=== PATIENT | female | born 2000 | race Caucasian/White ===

== ENCOUNTER 2019-12-19 11:00 | Outpatient (RCR) | payer OTHER, SELFPAY ==
[2019-11-21 07:36] VITALS: BP_SYST 125
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
--- NOTE | 2019-12-05 14:13 | PCPTNOTE ---
Patient did not show up for scheduled appointment this date.
--- NOTE | 2019-12-19 11:29 | PTOPEVAL ---
PHYSICAL THERAPY RE-EVALUATION REPORT 12-19-2019 Ms. Thomas has received 8 Physical Therapy sessions, from November 21 to today, for the diagnosis of R shoulder pain. Her treatment included her cervical spine. Compared to the initial evaluation: pain rating numbers and public health dietitian strength are the same; reported headache frequency and duration have increased; reported sleeping tolerance is less-- awakening from sleep more often due to pain; radicular pain is worse--into her fingers now with increased report in % of the day; active R shoulder ranges: flexion is less, abduction and IR are slightly increased and ER is the same; continues to have winging of B scapula, with L worse than the R. She has improved with the posture of her neck and shoulders and education for home exercise program. During the treatment sessions, her pain was decreased the most with cervical mechanical traction. Dry needling gave her some relief, but it did not last. Neha has a follow up appointment next week. PT will be on hold for now. If PT is to continue, please give her a new script. Thank you for referring Ms. Thomas to [facility]. Please review, sign, date and return this plan of care BRIDGETTE. I agree with and certify that the following plan of care is medically necessary. Referring Physician Date Attending Provider: Una Burch PA-C *PT Outpatient Re-Evaluation Document 12/19/19 10:55 KALYN (Rec: 12/19/19 11:26 KALYN [email or web address]) Subjective Information Neha reports: daily Query Text:As Reported By Patient/ headaches, lasting 6 hours; Family with sleeping wake up due to pain 10 x/night; have assist with pulling hair up, is able to brush it most of the way-- if tangled need help; need assist with cooking due to R hand problems and pain; QUICK DASH self assessment functional score of 82% limitation. Pain Assessment Timing of Pain Assessment Timing of Pain Assessment Assessment Pain Scale Pain Scale Used Numeric (1 - 10) Self Report Pain Assessment Right Shoulder(s) Reported Pain Level 7 Pain Description Burning,Shooting Pain Radiation Right Arm Radicular Pain Location into R 4&5 fingers and space between thumb & 1st finger~ 50 % day,start noon Pain Frequency Chronic Other Pain Description R side neck, anterior and posterior shoulder Lowest Pain Intensity 4 Greatest Pain Intensity 10 Pain Level Goal 0 Pain Aggravating Factors Exercise/Activity Other Pain Aggravating Factors move arm forward/overhead and behind her; use arm, put pressure on arm Pain Relief Interventions Used By Heat,Inactivity/Rest Patient
--- NOTE | 2020-01-14 16:06 | PCPTNOTE ---
PHYSICAL THERAPY DISCHARGE 01-14-2020 Attending Provider: Una Burch PA-C Patient:Neha Thomas Date of :2000 Ms. Solomon has not returned for any further treatments since the reevaluation on 12/19/2019. She had a dr follow up appointment and did not receive further orders to continue PT. Therefore she will be discharged at this time. Thank you for referring Neha to [facility]. Please review, sign, date and return this discharge summary BRIDGETTE. I have been updated about the patient's current status and I agree with discharge from the above service at this time. Referring Physician Date
== END 2020-01-15 13:44 | disposition home or self-care (01) ==
LOC: ANHPT 11:00
PROVIDERS: PCP Family Medicine
DX: M75.41 Impingement syndrome of right shoulder (principal); M25.311 Other instability, right shoulder; M25.511 Pain in right shoulder; G89.29 Other chronic pain
CPT/HCPCS: 97012; 97110; 97140; 97161

== ENCOUNTER 2020-04-02 15:15 | Outpatient (CLI) | payer OTHER, SELFPAY ==
--- NOTE | ~2020-04-02 | XR_ITS ---
EXAMINATION: SCOLIOSIS DATE: 04/02/2020 15:42 INDICATION: Radiculopathy the thoracic and lumbar region, back pain TECHNIQUE: Standing AP and lateral views of the thoracolumbar spine FINDINGS: There are 12 rib bearing thoracic vertebral bodies and 5 non-rib bearing lumbar type verteb ral bodies. There is no listhesis, compression deformity or vertebral body anomaly. There are 35 deg jaz of thoracolumbar dextroscoliosis measured from T5 through L1 and 21 degrees of lumbar levoscolio sis measured from L1 through L4. IMPRESSION: 1. Thoracic and lumbar scoliosis as detailed above. 2. No vertebral body anomalies. Reviewed, dictated and finalized at location A.
== END 2020-04-02 15:16 | disposition home or self-care (01) ==
PROVIDERS: PCP Family Medicine; Visit Provider Family Medicine
DX: M54.15 Radiculopathy, thoracolumbar region (principal); M41.84 Other forms of scoliosis, thoracic region; M41.86 Other forms of scoliosis, lumbar region
CPT/HCPCS: 72082

== ENCOUNTER 2020-04-29 14:47 | Outpatient (CLI) | payer OTHER, SELFPAY ==
--- NOTE | ~2020-04-29 | MR_ITS ---
EXAMINATION: MR lumbar spine wo con DATE: 04/29/2020 16:14 INDICATION: Adolescent Idiopathic scoliosis of thoracolumbar spine. TECHNIQUE: Magnetic resonance imaging (MRI) of the lumbar spine was performed without intravenous con trast. Sequences included sagittal T2-weighted FSE, sagittal STIR FSE, sagittal T1-weighted FSE, and axial T2-weighted FSE. COMPARISON: None FINDINGS: There is 18 degrees dextroscoliosis of thoracolumbar spine. Vertebral body heights and inte rvertebral disc heights are normal. The distal spinal cord signal intensity is normal. The conus medu llaris is at L2. The following disc levels are specifically discussed: L1-L2: The disc does not extend beyond the endplate margin. There is no facet joint osteoarthritis. T here is no neural foraminal stenosis. There is no central canal stenosis. L2-L3: The disc is mildly bulging. There is no facet joint osteoarthritis. There is no neural foramin al stenosis. There is no central canal stenosis. L3-L4: The disc is mildly bulging. There is no facet joint osteoarthritis. There is no neural foramin al stenosis. There is no central canal stenosis. L4-L5: The disc is mildly bulging. There is no facet joint osteoarthritis. There is mild bilateral ne ural foraminal stenosis. There is mild central canal stenosis. L5-S1: The disc is mildly bulging. There is mild bilateral facet joint osteoarthritis. There is mild bilateral neural foraminal stenosis. There is no central canal stenosis. IMPRESSION: 1. Mild lumbar spondylosis. 2. Thoracolumbar dextroscoliosis. Reviewed, dictated and finalized at location A.
--- NOTE | ~2020-04-29 | MR_ITS ---
EXAMINATION: MR thoracic spine wo con DATE: 04/29/2020 16:14 INDICATION: Adolescent idiopathic scoliosis of thoracolumbar spine. TECHNIQUE: Magnetic resonance imaging (MRI) of the thoracic spine was performed without intravenous c ontrast. Sagittal localizer T1-weighted FSE of the cervical spine was obtained. Thoracic spine sequen jeanette included sagittal T2-weighted FSE, sagittal T1-weighted FSE, sagittal T2-weighted FS FSE, and axi al T2-weighted FSE. COMPARISON: Radiographs 04/02/2020 FINDINGS: There is 24 degrees levoscoliosis of upper thoracic spine. There is 18 degrees dextroscolio sis of thoracolumbar spine. Vertebral body heights and intervertebral disc heights are normal. The di scs do not extend beyond the endplate margins. The facet joints are unremarkable. No neural foraminal stenosis or central canal stenosis. The spinal cord signal intensity is normal. IMPRESSION: 1. Scoliosis. Reviewed, dictated and finalized at location A. IMPRESSION: 1. Scoliosis.
== END 2020-04-29 14:48 | disposition home or self-care (01) ==
PROVIDERS: PCP Family Medicine; Visit Provider Family Medicine
DX: M41.125 Adolescent idiopathic scoliosis, thoracolumbar region (principal); M41.9 Scoliosis, unspecified; M47.896 Other spondylosis, lumbar region
CPT/HCPCS: 72146; 72148

== ENCOUNTER 2020-07-01 14:15 | Outpatient (RCR) | payer OTHER, SELFPAY ==
--- NOTE | 2020-05-29 16:32 | PTOPEVAL ---
Thank you for referring Neha Thomas to [facility].? The patient is scheduled to be seen for therapy? 2 x/week for 8 weeks. Please review, sign, date and return this plan of care BRIDGETTE. I agree with and certify that the following plan of care is medically necessary. Referring Physician Date Referring Provider: Dr. Sheldon Leonard *PT Outpatient Evaluation Start: 05/29/20 14:03 Freq: Status: Active Protocol: Document 05/29/20 14:02 CHANG (Rec: 05/29/20 14:54 CHANG [email or web address]) Therapy Assessment Status Assessment Status Assessment Status Evaluation Outpatient Past Medical History Past Medical History Source of Past Medical History Patient,Recalled from Previous Visit, Confirmed with Patient /Family Neurological History Hx Migraine Yes: with increased neck and shoulder pain; every/every other day Cardiovascular History Hx Hypertension Yes: meds Respiratory History Hx Respiratory Disorders No Significant History Gastrointestinal History Hx Gastrointestinal Disorders No Significant History Genitourinary History Hx Genitourinary Disorders No Significant History Musculoskeletal History Hx Back Pain Yes: seen chiropractor in past scoliosis Hx Other Musculoskeletal Disorders Yes: neck and R shoulder pain Hematological History Hx Hematological Disorders No Significant History Endocrine History Hx Endocrine Disorders No Significant History HEENT History Hx HEENT Disorders No Significant History Integumentary History Hx Skin Disorders No Significant History Other History Hx Other Surgeries Yes: tonsillectomy Evaluation Information Problem Diagnosis back and neck pain Onset 09/19-neck, 6 yrs ago- back Cause unknown Additional Evaluation Detail PT 5 months ago for shoulder and neck. 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 Subjective Information Back started hurting when she Query Text:As Reported By Patient/ was 13yr old. She was seen by Family a chiro for traction and manipulation with some relief of symptoms. She did stretches to help her back pain with some relief of her pain.
--- NOTE | 2020-06-11 14:41 | PCPTNOTE ---
Unable to see patient for scheduled PT session patient cancelled due to having to work.
--- NOTE | 2020-06-18 14:34 | PCPTNOTE ---
Patient called & cancelled scheduled appointment this date due to hurting more and not feeling up to coming in.
--- NOTE | 2020-06-24 15:47 | PCPTNOTE ---
Patient did not show up for scheduled appointment this date.Called pt and left message on voicemail. No additional appts scheduled.
--- NOTE | 2020-07-01 16:12 | PTOPEVAL ---
Thank you for referring Neha Thomas to [facility].? Pt has reached maximal potential with skilled therapy services at this time. She is unable to tolerance a progression of therapy program for resistance training. Goals have been partially met. DC skilled therapy services at this time. Please review, sign, date and return this plan of care BRIDGETTE. I agree with and certify that the following plan of care is medically necessary. Referring Physician Date Referring Provider: Dr. Sheldon Leonard MD *PT Outpatient Evaluation Start: 05/29/20 14:03 Freq: Status: Active Protocol: Document 07/01/20 14:13 CHANG (Rec: 07/01/20 15:13 CHANG [email or web address]) Therapy Assessment Status Assessment Status Assessment Status Re-evaluation/Discharge Note Evaluation Information Problem Diagnosis back and neck pain Onset 09/19-neck, 6 yrs ago- back Cause unknown Additional Evaluation Detail PT 5 months ago for shoulder and neck. 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 Back started hurting when she was 13yr old. She was seen by a chiro for traction and manipulation with some relief of symptoms. Subjective Information She feel like she is able to Query Text:As Reported By Patient/ move better, but denies any Family changes in her pain. She cont to report a great deal of popping in her back and neck region. She cont to have pain into small finger that radiated from her her. She reports increased pain with reading regardless of her neck or UE position,lifting task limited to 20#, and standing. Reports limitations with reaching task overhead or behind back with limited performance with ADL's. She is limited with sleeping due to pain. She started on back and end sleeping on right shoulder. Pain Assessment Timing of Pain Assessment Timing of Pain Assessment Re-assessment Pain Sca
== END 2020-07-02 13:17 | disposition home or self-care (01) ==
LOC: ANHPT 14:15
PROVIDERS: PCP Family Medicine
DX: M54.6 Pain in thoracic spine (principal); G89.29 Other chronic pain
CPT/HCPCS: 97110; 97162

== ENCOUNTER 2021-01-25 14:30 | Outpatient (RCR) | payer OTHER, SELFPAY ==
--- NOTE | 2020-12-30 08:50 | PTOPEVAL ---
PHYSICAL THERAPY EVALUATION Thank you for referring Neha Thomas to [facility].? Neha was evaluated for the dx of right arm monoplegia/weaknesses. The patient is scheduled to be seen for therapy?1 x/week for 4 weeks (less frequency with goal to progress HEP weekly as pt able). Please review, sign, date and return this plan of care BRIDGETTE. I agree with and certify that the following plan of care is medically necessary. Referring Physician Date Attending Provider: Lila Bonilla, MD *PT Outpatient Evaluation Start: 12/30/20 07:37 Freq: Status: Active Protocol: Document 12/30/20 07:37 MLV (Rec: 12/30/20 08:35 MLV [id number]) Assessment Status Evaluation Evaluation Information Problem Diagnosis right UE monoplegia Onset 2 years ago Cause none Additional Evaluation Detail Patient has right arm weakness /pain beginning 2 yrs ago. 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 Patient likes to cook and do housework but is limited due to power limits. Pateint has trouble with opening jars and lifting milk or other weighted things in the kitchen. Pt reports more pain at night versus day. Subjective Information Pt had limited progress with Query Text:As Reported By Patient/ therapy before due to pain but Family pain has gone down and feels she is able to tolerate strengthening better now. Previous Treatments Previous Treatments For This Problem had PT and OT for this about 1.5 yrs ago and was seen for about a year Pain Assessment Timing of Pain Assessment Timing of Pain Assessment Assessment Pain Scale Pain Scale Used Numeric (1 - 10) Self Report Pain Assessment Right Shoulder(s) Reported Pain Level 3 Pain Description Aching Radicular Pain Location pain at shoulder blade Pain Frequency Chronic Other Pain Description occasional forearm pain Pain Aggravating Factors Exercise/Activity Pain Score Pain Score
--- NOTE | 2021-01-13 13:38 | PCPTNOTE ---
Patient did not show up for scheduled appointment this date. Called patient-no answer. Left a message with a reminder of next appt time/date.
--- NOTE | 2021-01-25 15:08 | PTOPEVAL ---
PHYSICAL THERAPY DISCHARGE SUMMARY Thank you for referring Neha Thomas to [facility].? The patient has been seen 4 visits for the dx of right UE monoplegia. The pt has met her goals and has no further skilled PT needs. DC PT. Please review, sign, date and return this plan of care. I agree with and certify the following plan of care. Referring Physician Date Attending Provider: Lila Bonilla, MD *PT Outpatient Discharge Start: 12/30/20 07:37 Freq: Status: Active Protocol: Document 01/25/21 14:30 MLV (Rec: 01/25/21 15:08 MLV [email or web address]) Therapy Assessment Status Assessment Status Assessment Status Discharge Evaluation Information Problem Diagnosis right UE monoplegia Onset 2 years ago Cause none Additional Evaluation Detail Pt feels she is much better with her strength and the pain is low and manageable. Pt denies pain with lifting activities being done in therapy. Pt feels she is able to lift well for her job requirements. Pain Assessment Timing of Pain Assessment Timing of Pain Assessment Assessment Pain Scale Pain Scale Used Numeric (1 - 10) Self Report Pain Assessment Right Shoulder(s) Reported Pain Level 2 Pain Description Aching Pain Frequency Chronic Pain Aggravating Factors None Pain Behaviors None Pain Score Pain Score 2: Self Report Interventions Used Interventions Used By Clinicians Education,Exercise Pain Relief Interventions Used By Exercise,Heat Patient Upper Extremity Range of Motion General Upper Extremity Range of Motion Reason Not Measured WNL/Left,WNL/Right Upper Extremity Muscle Strength Testing General Upper Extremity Strength Gross Upper Extremity Strength Comments 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 Middle traps and upper traps 4/5 to 5/5. Lower traps 3+/5 lon. *Functional strength of right shoulder/elbow/wrist is 4-/5- tolerating red theraband with 2 sets of 15 reps of exercises *Pt is able to lift 20-30lbs w/ lon. UE for repetitions and able to lift 50lbs for single reps with good awarene
== END 2021-01-26 09:01 | disposition home or self-care (01) ==
LOC: ANHPT 14:30
PROVIDERS: PCP Family Medicine; Visit Provider Family Medicine
DX: G83.21 Monoplegia of upper limb affecting right dominant side (principal)
CPT/HCPCS: 97110; 97161

== ENCOUNTER 2021-08-30 13:40 | Emergency (ER) | payer OTHER, SELFPAY ==
[2021-08-30 13:54] VITALS: BP 122/85; PULSE 119; RESP 16; TEMP 37; O2SAT 100
--- NOTE | 2021-08-30 15:16 | ED.URI ---
HPI - URI/Sore Throat General Chief Complaint: Upper Respiratory Infection Stated Complaint: cough/difficulty breathing Source: patient and RN notes reviewed Limitations: no limitations History of Present Illness HPI Narrative: The unvaccinated patient, non-smoker/occasional drinker, presents with 1/2-week history of nasal congestion and cough. No fever, earache; no loss of taste/smell, CP, vomiting/diarrhea, S OB, wheezing. She had reportedly normal/noncontributory Covid test earlier. Symptoms are mild, worse when sleeping/supine resulting in that she' cannot breathe' nasally. Related Data Home Medications Medication Instructions Recorded Confirmed norethindrone-e.estradiol-iron [Lo 1 tablet PO DAILY 08/30/21 08/30/21 Loestrin Fe] Allergies Allergy/AdvReac Type Severity Reaction Status Date / Time amoxicillin Allergy Unknown Hives Verified 08/30/21 14:15 sulfamethizole Allergy Unknown Skin Verified 08/30/21 14:15 irritation sulfamethoxazole Allergy Unknown Rash Verified 08/30/21 14:15 trimethoprim Allergy Unknown Skin Verified 08/30/21 14:15 irritation Review of Systems Review of Systems: General/Constitutional: No weight loss,fever Eyes: N0: Redness,discharge Ears/Nose/Throat: No: Epistaxis,ear discharge Respiratory: Denies: Hemoptysis Gastrointestinal: No Vomiting, Bleeding-rectal Skin: No Lumps, eruption Neurologic: No Focal Weakness,Sz Hematologic: Denies: Petechiae/Purpura Psychiatric: No: Suicida ideationl All Other Systems: Reviewed and Negative PMFSH Family History Family History (Updated 04/29/19 @ 09:52 by DOCTOR UNKNOWN) Mother Family history of osteoporosis Hypertension Family history of elevated blood lipids Comments At time of signature, agree with nursing past medical, surgical, social and family history. There is no relevant family history pertinent to the presenting complaint Exam Narrative: General Appearance: Well appearing, Well nourished EYE: PERRLA, Conjunctiva clear Ears: Auditory canal normal, TM normal Nose: Rhinorrhea, Mucousal erythema Mouth/Throat: MM moist, Uvula midline, Pharyngeal erythema Neck: Supple, No adenopathy Respiratory: No respiratory distress, Breath sounds equal, Clear to auscultation Cardiovascular: RRR, No JVD Musculoskeletal: Non tender, Normal strength Skin: Warm, Dry Neurological: A&O x3, CN II-XII intact Psychiatric: Normal mood, Normal affect Course Vital Signs Vital signs: Vital Signs Temperature 98.6 F 08/30/21 13:54 Pulse Rate 119 H 08/30/21 13:54 Respiratory Rate 16 08/30/21 13:54 Blood Pressure 122/85 08/30/21 13:54 Pulse Oximetry 100 08/30/21 13:54 Temperature 98.6 F 08/30/21 13:54 Pulse Rate 119 H 08/30/21 13:54 Respiratory Rate 16 08/30/21 13:54 Blood Pressure 122/85 08/30/21 13:54 Pulse Oximetry 100 08/30/21 13:54 MDM - URI/Sore Throat Lab Data Labs: Influenza A Screen Negative Reference Range: Negative Influenza B Screen Negative Reference Range: Negative Discharge Plan Discharge Clinical Impression: Sinus headache Patient Disposition: Home, Self-Care Condition: Stable Instructions: Rhinosinusitis (ED) Prescriptions: New azithromycin 250 mg tablet See Rx Instructions .ROUTE .COMPLEX Qty: 6 RF: 0 codeine-guaifenesin 10-100 mg/5 mL liquid 7.5 ml PO BID PRN (Reason: cough) Qty: 118 RF: 0 azelastine 137 mcg (0.1 %) aerosol,spray 137 mcg NASAL Q12H Qty: 30 RF: 0 No Action Lo Loestrin Fe 1 mg-10 mcg (24)/10 mcg (2) tablet 1 tablet PO DAILY RF: 0 Other Ambulatory Orders: SARS-CoV-2 RNA, Qual RT-PCR (Routine) Location: Determined by Patient Ordered By: Jl Sauceda Follow-up/Referrals: UNKNOWN,DOCTOR [Primary Care Provider] - Stand Alone Forms: Work/School Release
== END 2021-08-30 15:24 | disposition home or self-care (01) ==
PROVIDERS: Emergency Provider Emergency Medicine
DX: R51.9 Headache, unspecified (principal); I10 Essential (primary) hypertension
CPT/HCPCS: 87804; 99213; G0463